=== PATIENT | male | born 2000 | race Native Hawaiian/Other Pacific Islander ===

== ENCOUNTER 2019-01-03 12:29 | Emergency (ER) | payer OTHER ==
[2019-01-03 12:37] VITALS: BP 129/68
--- NOTE | 2019-01-03 13:00 | ED Physician Documentation ---
PD HPI LOWER EXT INJURY - Stated complaint Stated Complaint: LT HIP PAIN - Chief complaint Chief Complaint: Trauma Ext - History obtained from History obtained from: Patient - History of Present Illness PD HPI LOW EXT INJURY LOCATION: Left (2 weeks atrauamtic L hip pain, gradual worsening. Feels like it is due to work on his feet 12 hours /day. Dx quadricep strain at another ED, but feels like he can't work. Seeing PCP next week and needs a work note. Had some sort of hip surgery 2 years ago (probably not a [facility]- too old).) Review of Systems Constitutional: reports: Reviewed and negative Nose: reports: Reviewed and negative Throat: reports: Reviewed and negative Cardiac: reports: Reviewed and negative PD PAST MEDICAL HISTORY - Allergies Allergies/Adverse Reactions: Allergies Allergy/AdvReac Type Severity Reaction Status Date / Time No Known Drug Allergies Allergy Verified 01/03/19 12:37 - Social History Does the pt smoke?: No Smoking Status: Never smoker PD ED PE NORMAL - Vitals Vital signs reviewed: Yes - General General: Alert and oriented X 3, No acute distress - Extremities Extremities: Other (L hip NTTP, painless gait without limp, no pain with int/ext rotation.) - Neuro Neuro: Alert and oriented X 3, Normal speech Results - Vitals Vitals: Vital Signs - 24 hr 01/03/19 12:33 Temperature 36.6 C Heart Rate 82 Respiratory 16 Rate Blood Pressure 129/68 O2 Saturation 98 Oxygen O2 Source Room air PD MEDICAL DECISION MAKING - ED course ED course: 18-year-old with history of hip surgery, 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 Now with hip pain due to increased work, no evidence of medical emergency and had recent negative x-rays per him. He is mostly here for a work note. Departure - Departure Disposition: 01 Home, Self Care Clinical Impression: Hip pain, left Condition: Good Record reviewed to determine appropriate education?: Yes Comments: Ibuprofen as needed for pain, follow-up with your primary care physician next week, return for new or worsening symptoms. Forms: Activity restrictions
== END 2019-01-03 13:14 | disposition home or self-care (01) ==
LOC: ED 12:29
DX: M25.552 Pain in left hip (principal)
CPT/HCPCS: 99281; 99282